=== PATIENT | male | born 1950 | race Caucasian/White ===

== ENCOUNTER → 2024-01-27 17:28 | Outpatient (REF) | payer MEDICARE, OTHER, SELFPAY | LOC: MRI 17:28 | PROVIDERS: ATTENDING PHYSICIAN Physician Assistant Surgical; FAMILY PHYSICIAN Internal Medicine | DX: M25.551 Pain in right hip (principal) | CPT/HCPCS: 73721 ==

== ENCOUNTER 2024-03-24 06:13 | Day surgery (SDC) | payer MEDICARE, OTHER, SELFPAY ==
[2024-03-24 07:23] VITALS: BMI 34.0
[2024-03-24 07:24] VITALS: BMI 34.0
[2024-03-24 07:25] VITALS: BP 145/61
--- NOTE | 2024-03-24 07:30 | PTCARENOTE ---
Dr. Francis aware of blood sugar of 182. No further orders.
[2024-03-24 07:31] LABS: Glucose - Point of Care 182 mg/dl (70-99)
[2024-03-24 09:05] VITALS: BP 117/74
[2024-03-24 09:20] VITALS: BP 120/71
== END 2024-03-24 09:40 | disposition home or self-care (01) ==
LOC: GI 06:13
PROVIDERS: ATTENDING PHYSICIAN Internal Medicine Gastroenterology
DX: Z12.11 Encounter for screening for malignant neoplasm of colon (principal); D12.2 Benign neoplasm of ascending colon; D12.3 Benign neoplasm of transverse colon; K57.30 Diverticulosis of large intestine without perforation or abscess without bleeding; K64.0 First degree hemorrhoids; Z86.010 Personal history of colon polyps; Z98.890 Other specified postprocedural states; Z98.0 Intestinal bypass and anastomosis status
CPT/HCPCS: 45385; 45380; 88305; 82962

== ENCOUNTER 2024-12-05 11:08 | Emergency (ER) | payer MEDICARE, OTHER, SELFPAY ==
[2024-12-05] VITALS (9 sets, daily range): BP systolic 127–136; BP diastolic 61–85; BMI 34.7
--- NOTE | 2024-12-05 11:29 | EDRN ---
Pt absolutely refused EKG upon triage, left triage room abruptly stating he 'had to poop now.'
[2024-12-05 12:09] LABS: % Eosinophils 5.3 % (0-6); % Immature Granulocytes 0.6 % (0-0.5); % Lymphocytes 28.3 % (20.5-51.1); % Monocytes 8.8 % (1.7-9.3); Absolute Basophils 0.1 10^3/uL (0-0.2); Absolute Eosinophils 0.4 10^3/uL (0-0.7); Absolute Immature Granulocytes 0.1 10^3/uL (0-0.05); Absolute Lymphocytes 2.3 10^3/uL (1.2-3.4); Absolute Monocytes 0.7 10^3/uL (0.1-0.6); Absolute Neutrophils 4.6 10^3/uL (1.4-6.5); Hematocrit 36.4 % (39.0-52.0); Hemoglobin 12.2 g/dL (13.0-18.0); Mean Corp Hgb Conc. 33.5 g/dL (33.0-37.0); Mean Corpuscular Hgb 31.5 pg (27.0-31.0); Mean Corpuscular Volume 94.1 fL (80.0-94.0); Mean Platelet Volume 9.5 fL (7.4-10.4); Nucleated Red Blood Cells % 0 % (-); Platelet Count 279 10^3/uL (130-400); Red Blood Cell Count 3.87 10^6/uL (4.70-6.10); Red Cell Dist. Width 14.1 % (11.5-14.5); White Blood Cell Count 8.3 10^3/uL (4.8-10.8)
[2024-12-05 12:22] LABS: ALT (SGPT) 24 U/L (0-50); AST (SGOT) 34 U/L (17-59); Albumin 3.9 g/dl (3.5-5.0); Alkaline Phosphatase 115 U/L (38-126); Blood Urea Nitrogen 20 mg/dl (9-20); Calcium 8.2 mg/dl (8.4-10.2); Carbon Dioxide 24 mmol/L (22-30); Chloride 102 mmol/L (98-107); Glucose 228 mg/dl (70-99); Lipase 53 U/L (23-300); Potassium 4.2 mmol/L (3.5-5.1); Sodium 135 mmol/L (135-145); Total Bilirubin 0.8 mg/dl (0.2-1.3); Total Protein 6.3 g/dl (6.3-8.2); eGFR > 60.00
[2024-12-05 12:33] LABS: Troponin I < 0.012 ng/ml
--- NOTE | 2024-12-05 14:23 | ED.GENMED ---
History of Present Illness
<Tiffani Rawls PA-C - Last Filed: 12/05/24 21:05>
General
Chief Complaint: Chest Pain
Source: patient
Exam Limitations: none
Time Seen by Provider: 12/05/24 13:52
Nursing documentation reviewed up to this point in time: agreed with
History of Present Illness
History of Present Illness:
Patient is a 74-year-old male with history insulin-dependent diabetes, prostate cancer, colon cancer in remission presenting to the emergency department for evaluation of left-sided chest pain. Patient states that when got out of bed this morning
at 9 AM pressure in his left chest and left scapular region. Pain also seem to radiate into his left neck. Pain has been constant since 9 AM. No clear pleuritic or exertional component. No shortness of breath. No dizziness, numbness/tingling in
extremities, lower extremity edema or pain.
Patient saw Dr. Lockhart about 10 years ago, although has not followed with cardiology since. He does have a family history of CAD.
Patient denies any recent travel or surgery. No personal or family history of blood clots or clotting disorders.
Past History
<Tiffani Rawls PA-C - Last Filed: 12/05/24 21:05>
Past History
ED Past Medical History: Cancer (Prostate), Hypercholesterolemia, IDDM and Other (Hep B,)
ED Past Surgical History: Appendectomy, Orthopedic (L shoulder surg X 3, R shoulder surg,) and Other (partial thyroidectomy)
Social History
Tobacco: Former smoker
Alcohol: Daily
Personal:
Living: with family
Employment: Employed
Review of Systems
<Tiffani Rawls PA-C - Last Filed: 12/05/24 21:05>
Review of Systems
Allergies reviewed?: Yes
All Other Systems: ROS reviewed and negative except as documented in HPI and ROS
Phy Exam
<Tiffani Rawls PA-C - Last Filed: 12/05/24 21:05>
Physical Exam
Physical Exam:
Vitals: Mildly hypertensive, otherwise vital signs stable. Afebrile
General: Patient is well appearing, no acute distress. Nontoxic appearing
Skin: Warm and dry, no rashes or lesions
Head: Normocephalic, atraumatic
Eyes: Sclera nonicteric. EOMs intact. No nystagmus.
Throat: Protecting airway
Neck: Normal ROM, no cervical spine tenderness, no meningismus
Cardiac: Regular rate and rhythm, no murmurs. No anterior chest wall tenderness. Left scapular region with mild tenderness to palpation.
Pulm: Normal respiratory effort, no wheezes, rales, rhonchi heard on exam. O2 saturation 99 on room air
Abdomen: Soft. No abdominal tenderness.
Extremities: No evidence of cyanosis or edema. Palpable DP pulses bilaterally
Neuro: AAOx3. Grossly intact.
Psychiatric: Normal affect.
Scores
<Tiffani Rawls PA-C - Last Filed: 12/05/24 21:05>
Heart Score for Chest Pain Patients
STEMI patient?: No
History: Moderately Suspicious
ECG: Normal
Age: >/= 65 years
Risk Factors: 1 or 2 Risk Factors
Troponin: </= Normal Limit
Heart Score for Chest Pain Patients: 4
Heart Score Risk: 20.3% MACE over next 6 weeks
Course
<Tiffani Rawls PA-C - Last Filed: 12/05/24 21:05>
Orders/Labs/Results
Orders:
Orders
12/05/24 11:32
Electrocardiogram (*1) Urgent
Reason for Study: Chest Pain
12/05/24 11:33
EKG- Treatment ONCE
12/05/24 11:58
Complete Blood Count/With Diff Urgent
12/05/24 12:00
Comprehensive Metabolic Panel Urgent
Lipase Urgent
Troponin I Urgent
12/05/24 14:52
D-Dimer Urgent
Troponin I Urgent
12/05/24 15:00
Electrocardiogram (*1) Urgent
Reason for Study: Chest Pain
EKG- Treatment ONCE
12/05/24 15:24
CR Chest - 2 Views Urgent
Comment:
Reason For Exam: Left chest/scapular pain
12/05/24 15:54
Ibuprofen [Motrin] 400 mg PO NOW STA
Abnormal Lab Results
12/05/24 12/05/24
11:58 12:00
RBC 3.87 L 10^6/uL
(4.70-6.10)
Hgb 12.2 L g/dL
(13.0-18.0)
Hct 36.4 L %
(39.0-52.0)
MCV 94.1 H fL
(80.0-94.0)
MCH 31.5 H pg
(27.0-31.0)
Abs Immat Gran (auto) 0.1 H 10^3/uL
(0-0.05)
Absolute Monos (auto) 0.7 H 10^3/uL
(0.1-0.6)
Immature Gran % 0.6 H %
(0-0.5)
Glucose 228 H mg/dl
(70-99)
Calcium 8.2 L mg/dl
(8.4-10.2)
12/05/24 11:58
12/05/24 12:00
Vital Signs
Initial and Last Documented VS:
Initial Vital Signs
Temp Pulse Resp BP Pulse Ox
98.1 F 78 18 135/64 99
12/05/24 11:26 12/05/24 11:26 12/05/24 11:26 12/05/24 11:26 12/05/24 11:26
Last Documented Vital Signs
Temp Pulse Resp BP Pulse Ox
98.1 F 75 18 129/85 99
12/05/24 11:26 12/05/24 18:00 12/05/24 18:00 12/05/24 18:00 12/05/24 11:26
<Geovanna Goldsmith MD - Last Filed: 12/05/24 17:57>
Orders/Labs/Results
Orders:
Orders
12/05/24 11:32
Electrocardiogram (*1) Urgent
Reason for Study: Chest Pain
12/05/24 11:33
EKG- Treatment ONCE
12/05/24 11:58
Complete Blood Count/With Diff Urgent
12/05/24 12:00
Comprehensive Metabolic Panel Urgent
Lipase Urgent
Troponin I Urgent
12/05/24 14:52
D-Dimer Urgent
Troponin I Urgent
12/05/24 15:00
Electrocardiogram (*1) Urgent
Reason for Study: Chest Pain
EKG- Treatment ONCE
12/05/24 15:24
CR Chest - 2 Views Urgent
Comment:
Reason For Exam: Left chest/scapular pain
12/05/24 15:54
Ibuprofen [Motrin] 400 mg PO NOW STA
Abnormal Lab Results
12/05/24 12/05/24
11:58 12:00
RBC 3.87 L 10^6/uL
(4.70-6.10)
Hgb 12.2 L g/dL
(13.0-18.0)
Hct 36.4 L %
(39.0-52.0)
MCV 94.1 H fL
(80.0-94.0)
MCH 31.5 H pg
(27.0-31.0)
Abs Immat Gran (auto) 0.1 H 10^3/uL
(0-0.05)
Absolute Monos (auto) 0.7 H 10^3/uL
(0.1-0.6)
Immature Gran % 0.6 H %
(0-0.5)
Glucose 228 H mg/dl
(70-99)
Calcium 8.2 L mg/dl
(8.4-10.2)
12/05/24 11:58
12/05/24 12:00
Vital Signs
Initial and Last Documented VS:
Initial Vital Signs
Temp Pulse Resp BP Pulse Ox
98.1 F 78 18 135/64 99
12/05/24 11:26 12/05/24 11:26 12/05/24 11:26 12/05/24 11:26 12/05/24 11:26
Last Documented Vital Signs
Temp Pulse Resp BP Pulse Ox
98.1 F 75 18 129/85 99
12/05/24 11:26 12/05/24 18:00 12/05/24 18:00 12/05/24 18:00 12/05/24 11:26
<Tiffani Rawls PA-C - Last Filed: 12/05/24 21:05>
MDM/Problems Addressed
Differential Diagnosis Includes:
Not limited to: Muscular strain, pericarditis, acute coronary syndrome, pulmonary embolism, pleural effusion, etc.
MDM/Problems Addressed:
74-year-old female with history as documented presenting with left chest/scapular pain constant in nature since this morning. No associated shortness of breath, lightheadedness, diaphoresis. No exertional or pleuritic component. Vital signs
stable on arrival, patient is afebrile. Physical exam as above. Patient well-appearing, in no apparent distress. EKG without any acute ischemic changes. Differential broad at this time�will check labs, troponin. Although patient without any
current PE risk factors, he does have remote history of both prostate and colon cancer. Will screen with D-dimer given scapular pain to rule out pulmonary embolism. Plan for chest x-ray if D-dimer negative. Motrin for pain. Will closely monitor
and reassess.
Update: Patient has remained stable in the emergency department. Troponin undetectable x 2. D-dimer undetectable. Chest x-ray without any acute abnormalities�however small nodule was noted in right upper lung for which patient should monitor
outpatient. He was made aware of this and given copy report to take home with them and follow-up with PCP. Workup in emergency department unremarkable. Low suspicion for acute emergent cardiac/pulmonary process. Symptoms likely musculoskeletal
in nature including muscular strain from possibly sleeping awkward. Feel patient stable for discharge home and close outpatient follow-up. Will provide information for cardiology. Close return precautions discussed. Patient seen with attending
physician.
Chronic conditions affecting care:
Insulin-dependent diabetes, history of breast cancer, colon cancer
Acute Exacerbation and/or Progression of Chronic Illness:
Acutely hyperglycemic
<Tiffani Rawls PA-C - Last Filed: 12/05/24 21:05>
*Radiology
Radiology exam reviewed: preliminary read by ED provider (Chest x-ray reviewed by mo-no acute cardio/pulmonary process) and radiology read reviewed
*Pulse Oximetry
Patient hypoxic: no
*EKG
Interpreted by ED Provider?: Yes
EKG Intrepretation Date: 12/05/24
Interpretation: abnormal
Comparison EKG: no changes
Heart Rate: 83
Rate: normal
Rhythm: sinus and sinus arrhythmia
[place]: right axis deviation
QRS Pattern: other (Bifascicular block)
Ischemia: no ischemia
*Business Administration Teacher Interpretation
Rate: normal
Interpretation: normal
Heart Rate: 75
Rhythm: sinus
*Critical Care Note
Total Time (30-74mins, 75-104mins- exclusive of procedures): Not Applicable
ED Attending Note
<Tiffani Rawls PA-C - Last Filed: 12/05/24 21:05>
-
Portions of this chart may have been created with voice recognition software.� Occasional wrong word or��sound alike� substitutions may have occurred due to the inherent limitations of voice recognition software.
<Geovanna Goldsmith MD - Last Filed: 12/05/24 17:57>
ED Attending Note
Patient seen and examined by attending physician: Yes
I performed the substantive portion of visit, reviewed & personally made and approve the management plan that is documented in note by myself or ULISES.: Yes
ED Attending Note:
74-year-old male presents emergency department complaints of pain in the left shoulder area radiating slightly to the left anterior chest, scapular area and neck. Pain was noted when he woke up this morning and continues. As he is moving his arm
here while talking he states that it does feel like is a little bit worse when he moves his arm/raises his arm up. He denies recent trauma or falls, numbness, tingling, weakness, dizziness, dyspnea, diaphoresis, nausea, vomiting, jaw pain, or other
complaints. On exam, patient extremely well-appearing, heart regular rate and rhythm, lungs CTA. Testing reviewed, generally unremarkable for worrisome etiology. Patient now states that he thinks maybe he slept on his side wrong particularly with
the dog. Eager to go home. Discussed with him importance of follow-up and reasons return to the ER.
Discharge Plan
Departure
Patient Disposition: Home (Routine Discharge)
Date of Disposition: 12/05/24
Time of Disposition: 18:02
Patient with high blood pressure during this ER visit?: Yes
Condition: Good
Covid-19: Not Applicable
Discharge Problem:
Chest pain
Instructions: Chest pain, BLOOD PRESSURE
Prescriptions:
No Action
simvastatin 40 MG tablet
40 mg PO QPM
Novolog:
SQ AC
Patient Comments:
Novolog dosage per blood sugar results, varies
Terazosin
5 mg PO DAILY
cyclobenzaprine 10 MG tablet
10 mg PO TIDPRN PRN (Reason: back spasms)
levothyroxine 125 MCG tablet
150 mcg PO DAILY
zolpidem 10 MG tablet
10 mg PO HSPRN PRN (Reason: sleep)
Sutab 1.479-0.188- 0.225 gram Tablet
0 tab PO PER PKG DIR
insulin glargine 100 unit/mL Solution
14 unit SC 4-8XD
Vitamin D2
50,000 units PO DAILY
Rx Instructions:
1.25mg/50,000units daily
Referrals:
Damian Duran MD [Family Provider] - Follow up in 5-7 days
Jevon Beckwith MD [Active] - Next open appointment
Activity Restrictions/Additional Instructions:
RETURN TO THE EMERGENCY DEPARTMENT WITH ANY HIGH FEVERS, WORSENING/PERSISTENT CHEST PAIN, SHORTNESS OF BREATH, SEVERE BACK PAIN, DIZZINESS/LIGHTHEADEDNESS, OR ANY OTHER CONCERNS
-As discussed�your chest x-ray performed in the emergency department did show a pulmonary nodule on the right lung�you should have this further imaged by your primary care to ensure no further action is needed.
-You can take Tylenol and/or Motrin as needed for persistent discomfort.
-You should follow-up with your primary care provider to ensure that symptoms are improving. I have provided the name for a day guard that you can follow-up with for further evaluation as needed.
Monitor your symptoms closely and return to the emergency department with any acute worsening/new symptoms or any other concerns
Interventions
Interventions:
*Risk Screen - Suicide Last Done: 12/05/24 11:26
*General Assessment Last Done: 12/05/24 11:26
*Neglect/Abuse Screening Last Done: 12/05/24 18:39
ED- Fall Risk Assessment Last Done: 12/05/24 15:00
*ED COVID-19 Vaccine History Last Done: 12/05/24 11:26
*Nursing Disposition Last Done: 12/05/24 18:39
ED- Cardiac Assessment Last Done: 12/05/24 15:00
Discharge Date and Time
Discharge Date/Time: 12/05/24 18:40
Print Language: AMERICAN
[2024-12-05 15:21] LABS: D-Dimer < 0.27 ug/mlFEU (0.00-0.50)
[2024-12-05 15:26] LABS: Troponin I < 0.012 ng/ml
[2024-12-05] MEDS: MOTRIN 400 MG PO (16:08)
== END 2024-12-05 18:40 | disposition home or self-care (01) ==
LOC: EMR 11:08
PROVIDERS: Physician Assistant; Student in an Organized Health Care Education/Training Program; EMERGENCY PHYSICIAN Emergency Medicine; FAMILY PHYSICIAN Internal Medicine
DX: R07.89 Other chest pain (principal); M25.512 Pain in left shoulder; M54.2 Cervicalgia; R03.0 Elevated blood-pressure reading, without diagnosis of hypertension; R91.1 Solitary pulmonary nodule; I45.2 Bifascicular block; E11.9 Type 2 diabetes mellitus without complications; E78.00 Pure hypercholesterolemia, unspecified; Z79.4 Long term (current) use of insulin; Z87.891 Personal history of nicotine dependence; Z85.038 Personal history of other malignant neoplasm of large intestine; Z85.46 Personal history of malignant neoplasm of prostate; Z92.3 Personal history of irradiation; Z82.49 Family history of ischemic heart disease and other diseases of the circulatory system; Z88.5 Allergy status to narcotic agent; Z91.013 Allergy to seafood
CPT/HCPCS: 99284; 71046; 80053; 83690; 84484; 85025; 85379; 93005

== ENCOUNTER → 2024-12-09 14:37 | Outpatient (REF) | payer MEDICARE, OTHER, SELFPAY | LOC: HWRAD 14:37 | PROVIDERS: ATTENDING PHYSICIAN Internal Medicine | DX: M54.2 Cervicalgia (principal) | CPT/HCPCS: 72050 ==

== ENCOUNTER → 2024-12-10 10:38 | Outpatient (REF) | payer MEDICARE, OTHER, SELFPAY | LOC: HWRAD 10:38 | PROVIDERS: ATTENDING PHYSICIAN Internal Medicine | DX: R91.1 Solitary pulmonary nodule (principal) | CPT/HCPCS: 71250 ==

== ENCOUNTER → 2024-12-29 13:13 | Outpatient (REF) | payer MEDICARE, OTHER, SELFPAY | LOC: HWRAD 13:13 | PROVIDERS: ATTENDING PHYSICIAN Internal Medicine; REFERRING PHYSICIAN Internal Medicine Endocrinology, Diabetes & Metabolism | DX: E04.1 Nontoxic single thyroid nodule (principal) | CPT/HCPCS: 76536 ==

== ENCOUNTER 2025-10-11 18:40 | Emergency (ER) | payer MEDICARE, OTHER, SELFPAY ==
[2025-10-11 18:44] VITALS: BP 113/54
[2025-10-11 21:12] VITALS: BP 129/67
[2025-10-11 21:13] VITALS: BMI 36.8
--- NOTE | 2025-10-11 21:57 | ED.GENMED ---
History of Present Illness
General
Chief Complaint: Fall
Time Seen by Provider: 10/11/25 21:04
History of Present Illness
History of Present Illness:
75-year-old male with history of diabetes and high cholesterol presenting to the emergency department after a fall. Patient reports prior to arrival he was leaving his house to walk his dog and either tripped over his dog or on the step leading out
of the house. He fell into the garden area, however struck his head on a stone while in the garden. Denies loss of consciousness. Does report prior to the fall he did feel slightly dizzy, however resolved prior to the fall. Denies associated
chest pain or difficulty breathing. Notes that he also struck his left upper extremity and left lower extremity. Reports that his tetanus is up-to-date. Denies any neck pain. Notes discomfort to his left upper extremity and left lower extremity.
He has since been able to ambulate. Denies additional acute medical complaints.
Past History
Past History
ED Past Medical History: Cancer (Prostate), Hypercholesterolemia, IDDM and Other (Hep B,)
ED Past Surgical History: Appendectomy, Orthopedic (L shoulder surg X 3, R shoulder surg,) and Other (partial thyroidectomy)
Social History
Tobacco: Former smoker
Alcohol: Daily
Personal:
Living: with family
Employment: Employed
Phy Exam
Physical Exam
Physical Exam:
General: Well-appearing, no clinical signs of dehydration, nontoxic and in no acute distress
Head: abrasion to L-forehead
HEENT: protecting airway, TMs clear b/l
Neck: appears supple, no midline tenderness
CV: Normal heart rate
Resp: No accessory muscle use, no increased work of breathing
Abd: Soft and non-distended, no tenderness to palpation
Extremities: No deformities, no swelling. Large skin avulsion to the left forearm with mild tenderness to the left elbow joint. Range of motion grossly intact. Distal sensation and pulses. Abrasions to bilateral knees with some ecchymosis to the
left ruth with generalized tenderness. Range of motion grossly intact.
Neuro: alert, no focal neurologic deficit
: deferred
Rectal: deferred
Psych: Normal affect
Skin: Intact
Course
Orders/Labs/Results
Orders:
Orders
10/11/25 18:[address] [CT Head W/o Iv Contrast] Urgent
Comment:
Reason For Exam: fall with head strike
10/11/25 21:46
Elbow, 3 view, Left [CR Elbow - Left Min 3 Views ] Urgent
Comment:
Reason For Exam: fall
Tib/Fib, Left 2 View [CR Leg Tibia/fibula Left 2 Vw] Urgent
Comment:
Reason For Exam: fall
Vital Signs
Initial and Last Documented VS:
Initial Vital Signs
Temp Pulse Resp BP Pulse Ox
98.7 F 67 18 113/54 97
10/11/25 18:44 10/11/25 18:44 10/11/25 18:44 10/11/25 18:44 10/11/25 18:44
Last Documented Vital Signs
Temp Pulse Resp BP Pulse Ox
98.7 F 67 18 129/67 96
10/11/25 18:44 10/11/25 18:44 10/11/25 18:44 10/11/25 21:12 10/11/25 23:45
MDM/Problems Addressed
MDM/Problems Addressed:
75-year-old male with history of diabetes and hyperlipidemia presenting for a fall. Vital signs on arrival are normal.
On exam patient is resting comfortably, no acute distress. Patient awake, alert, oriented. Patient however does have obvious signs of trauma. No midline cervical neck tenderness, however abrasion to left forehead, as well as abrasions to the left
upper extremity and bilateral lower extremities. Given mechanism of injury with trauma to the head, will obtain CT brain imaging. Patient's left upper extremity abrasion is a large superficial skin tear, with wound edges not appropriately
approximating. Unable to suture. For this reason will dress appropriately with nonadhesive dressings. Will screen with x-ray of the left elbow as well as x-ray of the left ruth. Patient notes that tetanus is up-to-date.
00:05 - CT brain negative and x-rays are negative for acute fracture or malalignment. Wounds were appropriately dressed. Ultimately feel stable for discharge. However for patient's left upper extremity wound, advised seeing wound care to avoid
infection. Return precautions discussed and patient verbalized understanding
*Pulse Oximetry
SaO2: 98
Oxygen Mode of Delivery: Room air
Patient hypoxic: no
*Critical Care Note
Total Time (30-74mins, 75-104mins- exclusive of procedures): Not Applicable
ED Attending Note
-
Portions of this chart may have been created with voice recognition software.� Occasional wrong word or��sound alike� substitutions may have occurred due to the inherent limitations of voice recognition software.
Discharge Plan
Departure
Prescriptions:
No Action
simvastatin 40 MG tablet
40 mg PO QPM
Novolog:
SQ AC
Patient Comments:
Novolog dosage per blood sugar results, varies
Terazosin
5 mg PO DAILY
cyclobenzaprine 10 MG tablet
10 mg PO TIDPRN PRN (Reason: back spasms)
levothyroxine 125 MCG tablet
150 mcg PO DAILY
zolpidem 10 MG tablet
10 mg PO HSPRN PRN (Reason: sleep)
Sutab 1.479-0.188- 0.225 gram Tablet
0 tab PO PER PKG DIR
insulin glargine 100 unit/mL Solution
14 unit SC 4-8XD
Vitamin D2
50,000 units PO DAILY
Rx Instructions:
1.25mg/50,000units daily
Referrals:
Damian Duran MD [Family Provider, Internal Medicine]
Interventions
Interventions:
*Risk Screen - Suicide Last Done: 10/11/25 18:44
*General Assessment Last Done: 10/11/25 18:44
*Neglect/Abuse Screening Last Done: 10/11/25 18:44
*ED- Fall Risk Assessment Last Done: 10/11/25 21:13
*ED COVID-19 Vaccine History Last Done: 10/11/25 21:13
*ED Influenza Vaccine History Last Done: 10/11/25 21:13
ED-Musculoskeletal Assessment Last Done: 10/11/25 21:13
ED- Neurological Assessment Last Done: 10/11/25 21:13
ED-Skin Assessment Last Done: 10/11/25 21:13
Discharge Date and Time
Print Language: SWEDISH
== END 2025-10-12 00:22 | disposition home or self-care (01) ==
LOC: EMR 18:40
PROVIDERS: EMERGENCY PHYSICIAN Student in an Organized Health Care Education/Training Program; FAMILY PHYSICIAN Internal Medicine
DX: S51.802A Unspecified open wound of left forearm, initial encounter (principal); S00.81XA Abrasion of other part of head, initial encounter; S80.211A Abrasion, right knee, initial encounter; S80.212A Abrasion, left knee, initial encounter; S80.12XA Contusion of left lower leg, initial encounter; W01.198A Fall on same level from slipping, tripping and stumbling with subsequent striking against other object, initial encounter; Y93.K1 Activity, walking an animal; E11.9 Type 2 diabetes mellitus without complications; E78.00 Pure hypercholesterolemia, unspecified; Z87.891 Personal history of nicotine dependence
CPT/HCPCS: 99284; 70450; 73080; 73590